=== PATIENT | female | born 1945 | race Caucasian/White ===

== ENCOUNTER → 2017-11-11 | Outpatient (CLI) | payer MEDICARE, OTHER ==
[~2017-11-11] MED LIST: LEVOTHYROXIN0.112 M1; OXAZEPAM; SERTRALINE HCL100 MG; VALIUM2 MG PO
== END ==
LOC: M.RAD 13:25
DX: Z12.31 Encounter for screening mammogram for malignant neoplasm of breast (principal); N63.0 Unspecified lump in unspecified breast

== ENCOUNTER → 2017-11-12 | Outpatient (CLI) | payer MEDICARE, OTHER ==
--- NOTE | 2017-11-17 10:37 | S ---
[place] [address] SURGICAL PATH RPT PROCEDURE Name: KINGA KEITA Room: [facility].#: [id number] Admission: 11/12/17 Date of : 45 Discharge: Report #: [id number] Path Case #: [id number] PATHOLOGY REPORT COLLECTION DATE: 11/12/2017 RECEIVED DATE: 11/12/2017 SUBMITTING PHYS: Dr. Rafael Cagle OTHER PHYS: Dr. Andrade Wilkins SPECIMEN(S) RECEIVED: A.L breast 1:00 8 cm from nipple * * * * * * * * * * * * FINAL DIAGNOSIS: Left breast, 1:00, 8 cm from nipple, image-guided core biopsies: - Benign lymph node and predominantly benign fibrofatty tissue with scant benign breast epithelial tissue, negative for atypia. - See comment. COMMENT: Reviewed with Dr. Robert Sherman who agrees with the diagnosis. (NORMA:mml; 11/16/2017) PATHOLOGIST: Bi Medina M.D. REPORT ELECTRONICALLY SIGNED BY: Bi Medina M.D. DATE/TIME: 11/17/2017 10:37 * * * * * * * * * * * * GROSS PATHOLOGY: Received in formalin labeled "Kinga Keita, left breast 1:00, 8 cm from nipple," are multiple needle cores of yellow-rose fibrofatty tissue measuring 2.6 x 3.2 x 0.5 cm in aggregate dimensions. The tissue is submitted in its entirety in cassette A1 through A3. The cold ischemic time is 2 minutes. The total formalin fixation time is 30 hours and 33 minutes. (TSD; 11/12/2017) CLINICAL HISTORY: 0.51 x 0.36 x 0.31 cm INITIAL CPT CODE(S): A; 31829 Professional services performed by [facility] [place] [address] SURGICAL PATH RPT PROCEDURE Name: KINGA KEITA Room: [facility]#: [id number] Admission: 11/12/17 Date of : 45 Discharge: Report #: [id number] Path Case #: [id number] Technical services performed by [facility] at [address] [place] [address], [facility] [address] [address]. [facility] [address] [place] [address] PHONE: [phone] DIRECTOR: Hussein Agee M.D. * * * END OF REPORT * * *
== END ==
LOC: M.ULTRA 12:28
DX: R92.8 Other abnormal and inconclusive findings on diagnostic imaging of breast (principal)

== ENCOUNTER → 2018-07-07 | Outpatient (CLI) | payer MEDICARE, OTHER | LOC: M.RAD 05-11 16:45 → M.ULTRA 05-13 10:40 → M.RAD 05-13 10:40 | DX: R92.8 Other abnormal and inconclusive findings on diagnostic imaging of breast (principal) ==

== ENCOUNTER → 2019-02-08 | Outpatient (CLI) | payer MEDICARE, OTHER | LOC: M.RAD 12-21 15:03 | DX: N60.02 Solitary cyst of left breast (principal); R92.2 Inconclusive mammogram ==